=== PATIENT | female | born 1955 | race Hispanic/Latino ===

== ENCOUNTER 2017-01-08 08:46 | Day surgery (SDC) | payer MEDICARE ==
[2017-01-08 09:51] VITALS: BMI 25.0
[2017-01-08] MEDS ORDERED: Lactated Ringer's 1,000 ML IV ONE ×2 (11:20)
[2017-01-08] MEDS ORDERED: Propofol 10 mg/ml Inj (20 ML) ONE (11:22)
[2017-01-08] MEDS ORDERED: Atropine 0.4 mg/ml Inj (1 mL) ONE (11:41)
[2017-01-08] MEDS ORDERED: Lactated Ringer's 500 ML IV SCH (11:45)
[2017-01-08 12:03] VITALS: TEMP 97.5
[2017-01-08 12:16] VITALS: O2SAT 100
[2017-01-08 12:43] VITALS: BP 111/73; PULSE 69; RESP 16
== END 2017-01-08 13:04 | disposition home or self-care (01) ==
LOC: C.ENDO 08:46
PROVIDERS: ATTEND Internal Medicine Gastroenterology
DX: Z12.11 Encounter for screening for malignant neoplasm of colon (principal); D12.6 Benign neoplasm of colon, unspecified; K63.5 Polyp of colon; R10.13 Epigastric pain; K29.70 Gastritis, unspecified, without bleeding
CPT/HCPCS: 43239; 45380; 82948; 88305; J0461; J2704; J7120